=== PATIENT | female | born 1950 | race Two or more races ===

== ENCOUNTER 2020-07-08 11:18 | Emergency (ER) | payer OTHER ==
[~2020-07-08] VITALS: Ht 162.6 cm; Wt 65.8 kg
[2020-07-08] MEDS ORDERED: PROTONIX40 MG (11:35)
[2020-07-08] MEDS ORDERED: CIPRO500 MG PO (15:05)
[2020-07-08] MEDS ORDERED: PROTONIX40 MG PO (15:05)
[2020-07-08] MEDS ORDERED: INTESTINEX680 M1 PO (15:05)
[2020-07-08] MEDS ORDERED: LEVSIN/SL0.125 MG SL (15:05)
== END 2020-07-08 15:49 | disposition home or self-care (01) ==
LOC: ER 11:18
DX: K29.00 Acute gastritis without bleeding (principal); N39.0 Urinary tract infection, site not specified; B96.29 Other Escherichia coli [E. coli] as the cause of diseases classified elsewhere; R10.13 Epigastric pain; Z03.818 Encounter for observation for suspected exposure to other biological agents ruled out